=== PATIENT | male | born 1970 | race Two or more races ===

== ENCOUNTER 2023-01-20 14:24 | Emergency (ER) | payer OTHER ==
[~2023-01-20] VITALS: Ht 175.3 cm; Wt 91.0 kg
[2023-01-20 15:33] LABS: BASOPHILS % 0.4 % (0.0-2.0); EOSINOPHILS % 0.8 % (0.0-5.0); HEMATOCRIT. 46.9 % (42.0-52.0); HEMOGLOBIN. 15.9 g/dL (14.0-18.0); LYMPHOCYTES % 16.8 % (20.0-50.0); MEAN CORPUSCULAR HEMOGLOBIN 29.2 pg (28.0-32.0); MEAN PLATELET VOLUME 10.5 fl (7.4-10.4); MONOCYTES % 7.6 % (2.0-8.0); NEUTROPHILS % 74.4 % (40.0-76.0); PLATELET 228 x1000/uL (130-400); RED BLOOD CELL COUNT 5.45 mill/uL (4.7-6.1); RED CELL DISTRIBUTION WIDTH 13.3 % (11.6-14.6)
[2023-01-20 15:49] LABS: CHLORIDE 103 mEq/L (98-107)
[2023-01-20 17:00] VITALS: BP 130/80
== END 2023-01-20 17:12 | disposition home or self-care (01) ==
LOC: ER 14:39
DX: R00.2 Palpitations (principal); R42 Dizziness and giddiness; R07.89 Other chest pain
CPT/HCPCS: 36415; 80053; 84484; 85025; 93005; 99284